=== PATIENT | male | born 1945 | race Caucasian/White ===

== ENCOUNTER 2018-03-18 01:37 | Outpatient (RCR) | payer MEDICARE, OTHER, SELFPAY ==
[2018-03-18] MEDS: Acetaminophen 325 MG TAB 650 MG PO (10:28)
[2018-03-18] MEDS: Normal Saline Flush 10 ML SYR IVP (12:21)
== END 2018-04-07 23:59 | disposition home or self-care (01) ==
LOC: INF 01:37
PROVIDERS: PCP Family Medicine; Visit Provider Internal Medicine
DX: M81.0 Age-related osteoporosis without current pathological fracture (principal)
CPT/HCPCS: 96365; J3489

== ENCOUNTER → 2018-05-19 11:22 | Outpatient (BNVA) | payer MEDICARE, OTHER, SELFPAY | PROVIDERS: PCP Family Medicine; Visit Provider Urology | DX: B36.9 Superficial mycosis, unspecified (principal) | CPT/HCPCS: 81003; 99203; 99213 ==

== ENCOUNTER → 2018-05-28 10:23 | Outpatient (BNVA) | payer MEDICARE, OTHER, SELFPAY | PROVIDERS: PCP Family Medicine; Visit Provider Nurse Practitioner Gerontology | DX: R61 Generalized hyperhidrosis (principal); R32 Unspecified urinary incontinence; R21 Rash and other nonspecific skin eruption | CPT/HCPCS: 99214 ==

== ENCOUNTER 2018-06-17 13:34 | Outpatient (REF) | payer MEDICARE, OTHER, SELFPAY ==
[2018-06-17 20:57] LABS: ALT 26 U/L (12-78); AST 20 U/L (15-37); Albumin 4.1 g/dL (3.4-5.0); Alkaline Phosphatase 112 U/L (46-116); Anion Gap 5.8 mmol/L (3-11); BUN 14 mg/dL (7-18); Bilirubin, Total 0.8 mg/dL (0.2-1.0); CO2 33.2 mmol/L (21.0-32.0); CREATININE 0.92 mg/dL (0.70-1.30); Calcium 8.8 mg/dL (8.5-10.1); Chloride 101 mmol/L (98-107); Glucose 89 mg/dL (70-100); Potassium 3.4 mmol/L (3.5-5.1); Sodium 140 mmol/L (136-145); Total Protein 6.5 g/dL (6.4-8.2)
== END 2018-06-17 13:54 ==
LOC: NCHCN 13:34
PROVIDERS: PCP Family Medicine; Visit Provider Family Medicine
DX: E78.5 Hyperlipidemia, unspecified (principal); N20.0 Calculus of kidney
CPT/HCPCS: 80053

== ENCOUNTER → 2018-07-07 13:02 | Outpatient (BNVA) | payer MEDICARE, OTHER, SELFPAY | PROVIDERS: PCP Family Medicine; Visit Provider Nurse Practitioner Gerontology | DX: N50.89 Other specified disorders of the male genital organs (principal); R32 Unspecified urinary incontinence | CPT/HCPCS: 99214 ==

== ENCOUNTER 2018-08-20 12:53 | Outpatient (REF) | payer MEDICARE, OTHER, SELFPAY ==
[2018-08-20 20:47] LABS: Anion Gap 11.1 mmol/L (3-11); BUN 10 mg/dL (7-18); CO2 29.9 mmol/L (21.0-32.0); CREATININE 1.04 mg/dL (0.70-1.30); Calcium 9.4 mg/dL (8.5-10.1); Chloride 102 mmol/L (98-107); Glucose 84 mg/dL (70-100); Potassium 4.2 mmol/L (3.5-5.1); Sodium 143 mmol/L (136-145)
== END 2018-08-20 13:13 ==
LOC: NCHCN 12:53
PROVIDERS: PCP Family Medicine; Visit Provider Family Medicine
DX: E87.6 Hypokalemia (principal)
CPT/HCPCS: 80048

== ENCOUNTER → 2018-09-11 12:25 | Outpatient (BNVA) | payer MEDICARE, OTHER, SELFPAY | PROVIDERS: PCP Family Medicine; Visit Provider Urology | DX: N39.41 Urge incontinence (principal) | CPT/HCPCS: 99213 ==

== ENCOUNTER → 2018-10-10 10:56 | Outpatient (BNVA) | payer MEDICARE, OTHER, SELFPAY | PROVIDERS: PCP Family Medicine; Visit Provider Urology | DX: R61 Generalized hyperhidrosis (principal) | CPT/HCPCS: 99213 ==

== ENCOUNTER → 2018-11-21 10:46 | Outpatient (BNVA) | payer MEDICARE, OTHER, SELFPAY | PROVIDERS: PCP Family Medicine; Visit Provider Urology | DX: R61 Generalized hyperhidrosis (principal); D47.09 Other mast cell neoplasms of uncertain behavior | CPT/HCPCS: 99212 ==

== ENCOUNTER 2019-03-24 02:54 | Outpatient (RCR) | payer MEDICARE, OTHER, SELFPAY ==
[2019-03-24] MEDS: Acetaminophen 325 MG TAB 650 MG PO (10:32)
[2019-03-24] MEDS: Normal Saline Flush 10 ML SYR IVP (10:32)
== END 2019-04-07 23:59 | disposition home or self-care (01) ==
LOC: INF 02:54
PROVIDERS: PCP Family Medicine; Visit Provider Internal Medicine
DX: M81.0 Age-related osteoporosis without current pathological fracture (principal)
CPT/HCPCS: 96365; J3489

== ENCOUNTER → 2019-04-14 13:35 | Outpatient (BNVA) | payer OTHER, SELFPAY | PROVIDERS: PCP Family Medicine; Referring Provider Family Medicine; Visit Provider Nurse Practitioner Gerontology | DX: B36.9 Superficial mycosis, unspecified (principal); R61 Generalized hyperhidrosis | CPT/HCPCS: 99213 ==

== ENCOUNTER → 2019-04-28 13:24 | Outpatient (BNVA) | payer OTHER, SELFPAY | PROVIDERS: PCP Family Medicine; Referring Provider Family Medicine; Visit Provider Nurse Practitioner Gerontology | DX: R61 Generalized hyperhidrosis (principal); N39.41 Urge incontinence | CPT/HCPCS: 99214 ==

== ENCOUNTER → 2019-05-14 11:03 | Outpatient (BNVA) | payer OTHER, SELFPAY | PROVIDERS: PCP Family Medicine; Referring Provider Family Medicine; Visit Provider Nurse Practitioner Gerontology | DX: R61 Generalized hyperhidrosis (principal); N39.41 Urge incontinence | CPT/HCPCS: 99213 ==

== ENCOUNTER 2019-05-24 10:52 | Emergency (ER) | payer OTHER, SELFPAY ==
[2019-05-24 10:59] VITALS: BP 132/84; PULSE 76; RESP 16; TEMP 36.6; O2SAT 94
--- NOTE | 2019-05-24 11:16 | ED.GENADUL_ITS ---
Discharge Plan Disposition Patient Disposition: HOME Condition: Good Discharge Details Chief Complaint: Nk/Back Pain Clinical Impression: Back contusion Primary Care Provider: Brianna Sibley V ED Provider: Jojo Velazquez Home Meds and New Rx's Prescriptions: Continued (DME) condom catheter/external drainage starter pack Qty: 1 RF: 0 Qbrexza 2.4 % towelette 1 applic TP DAILY Qty: 30 RF: 12 Myrbetriq 50 mg tablet extended release 24 hr 50 mg PO DAILY Qty: 90 RF: 1 phenazopyridine [Pyridium] 100 mg tablet 100 mg PO TID PRN (Reason: pain) Qty: 3 RF: 0 clotrimazole 10 ML solution 10 ml Topical PRN PRNRF: 0 epinephrine [EpiPen 2-Toño] 0.3 MG/0.3 ML auto-injector 0.3 mg IM PRN PRNRF: 0 ergocalciferol (vitamin D2) [Vitamin D2] 50,000 UNIT capsule 50,000 unit PO weekly RF: 0 zoledronic [id number]-[id number] [Reclast] 5 MG/100 ML piggyback 5 mg IV yearly RF: 0 chlorthalidone 25 MG tablet 25 mg PO DAILY Qty: 90 RF: 4 Discharge Instructions Instructions: How to Use an Incentive Spirometer (ED), Rib Fracture (ED), Contusion in Adults (ED) Additional Instructions: Encourage water intake. Encourage deep breathing. Please use the incentive spirometer as advised by nursing staff. Your x-ray does not show any evidence of fracture but you may have a small crack in 1 of your ribs that is not able to be seen on these images. Tylenol as needed for pain. You may use patches, available over the counter, such as Salonpas or Lidoderm patches. If you develop fevers/chills, difficulty breathing, shortness of breath or other new/worsening symptoms please seek care urgently once again. Please follow-up with primary care at the end of the week. Referrals: Brianna Sibley MD [Primary Care Provider] - Discharge Data Discharge Date/Time-TO BE ENTERED AT DEPARTURE: 05/24/19 13:24 Medical Decision Making Patient is a 73-year-old male presenting today with chief complaint of right- sided back pain after fall 3 days ago. He reports 3 days ago he slipped on the ice outside of his home and landed on the right side of his back. He has been using Tylenol without discomfort. Patient states that his pain is worse today with deep inspiration and coughing. Denies any fevers or chills. Does not feel short of breath. He denies any hematuria, urinary incontinence. No change in his bowel habits. Denies abdominal pain. No nausea or vomiting. Has not noted any pain rating into his legs. No weakness. No sensory changes. Denies other injury time of his fall. Did not strike his head, no loss of consciousness. On exam, patient is resting comfortably. He is area of maximal discomfort is more in the right lower side of his chest wall. He has no midline discomfort. Good range of motion. No CVA tenderness. Abdominal exam is benign. No ecc hymosis, rash or evidence of acute trauma. Normal neurologic exam. FINDINGS: Lungs: Emphysema Lungs are well aerated without a focal area of consolidation. Pleural space: Unremarkable. No pleural effusion. No pneumothorax. Heart/Mediastinum: Unremarkable. No cardiomegaly. Bones/joints: Compression fractures likely T. 12, L1 and L2. Previously noted. IMPRESSION: 1. Lungs are well aerated without a focal area of consolidation. 2. Compression fractures likely T. 12, L1 and L2. Previously noted. FINDINGS: Bones/joints: The submitted view of the chest is unremarkable. No acute cardiopulmonary process. The ribs are grossly normal. No acute or chronic fracture appreciated. No lytic process or expansile process. No rib notching. Soft tissues: Normal. IMPRESSION: Unremarkable ribs. I discussed these findings with the patient. Advised that while there is no evidence of acute fracture on the x-ray, this does not mean that there is not possibly a nondisplaced fracture that is not able to be visualized at this time. Encourage deep breathing. We will give him an incentive spirometer and treat as if he has a fracture. I encouraged use of Tylenol and ibuprofen as well as topical patches to help with discomfort. He was given strict return precautions. Advise close follow-up with primary care. All of his questions and concerns were addressed and he is in agreement with this plan. HPI General Mode of arrival: ambulatory . Date/Time Provider Initiated Documentation: 05/24/19 11:16 . Limitations to Documentation: no limitations . Information obtained by: patient and RN notes reviewed . History of Present Illness 73 year old M presents to the emergency department with the chief complaint of Right sided back pain, described as moderate, with intensity rated at 8. Quality is described as sharp, and is localized to the back. Patient reports no radiation. Patient started experiencing this day(s) (3) and it has been constant. Immobilization improves symptom(s), Movement worsens symptoms . Patient notes no other symptoms.. Patient did receive the following treatments prior to arrival, none Related Data Home Medications Medication Instructions Recorded Confirmed clotrimazole 10 ml TOPICAL PRN PRN script 07/20/15 04/28/19 epinephrine [EpiPen 2-Toño] 0.3 mg IM PRN PRN 07/20/15 04/28/19 chlorthalidone 25 mg PO DAILY #90 tab-cap 12/11/16 04/28/19 ergocalciferol (vitamin D2) 50,000 unit PO weekly 12/11/16 04/28/19 [Vitamin D2] zoledronic rslf-erkzauvx-cebuw 5 mg IV yearly 12/11/16 04/28/19 [Reclast] condom catheter/external drainage #1 ea 09/11/18 04/28/19 starter pack glycopyrronium tosylate 2.4 % 1 applic TP DAILY #30 each 10/10/18 04/28/19 towelette mirabegron 50 mg tablet,extended 50 mg PO DAILY #90 tab 04/28/19 04/28/19 release 24 hr phenazopyridine 100 mg tablet 100 mg PO TID PRN #3 tab 05/14/19 05/14/19 Previous Rx's Medication Instructions Recorded condom catheter/external drainage #1 ea 09/11/18 starter pack glycopyrronium tosylate 2.4 % 1 applic TP DAILY #30 each 10/10/18 towelette mirabegron 50 mg tablet,extended 50 mg PO DAILY #90 tab 04/28/19 release 24 hr phenazopyridine 100 mg tablet 100 mg PO TID PRN #3 tab 05/14/19 Allergies Allergy/AdvReac Type Severity Reaction Status Date / Time venom-honey bee Allergy Severe Anaphylaxsi Unverified 05/24/19 11:03 s solifenacin succinate AdvReac Intermediate Dizziness/L Unverified 05/24/19 11:03 [From Vesicare] ightheade tolterodine tartrate AdvReac Intermediate Dizziness/L Unverified 05/24/19 11:03 [From Detrol] ightheade General Stated Complaint: Nk/Back Pain MARCELLA: 4 Review of Systems Constitutional Constitutional: Reports as per HPI, Denies chills, Denies fatigue, Denies fever(s), Denies frequent falls and Denies headache(s) Eyes Eyes: Denies change in vision ENT Ears, Nose, Mouth, and Throat: Denies headache(s) Cardiovascular Cardiovascular: Denies chest pain, Denies dyspnea and Denies dyspnea on exertion Respiratory Respiratory: Denies cough, Reports pain on inspiration, Reports pain with cough, Denies dyspnea and Denies dyspnea on exertion Gastrointestinal Gastrointestinal: Denies abdominal pain, Denies change in bowel habits and Denies fecal incontinence Genitourinary Genitourinary: Reports as per HPI, Denies urinary hesitancy and Denies urinary incontinence Musculoskeletal Musculoskeletal: Reports as per HPI, Reports back pain, Denies muscle weakness, Denies numbness, Denies radiating pain into limb, Reports stiffness and Denies tingling Integumentary/Breasts Skin/Breast: Reports as per HPI and Denies rash Neurologic Neurologic: Reports as per HPI, Denies frequent falls, Denies headache(s), Denies focal weakness, Denies numbness, Denies radicular pain, Denies sensory deficit, Denies tingling and Denies paresthesias Endocrine Endocrine: Denies fatigue [facility] Medical History (Updated 05/24/19 @ 13:14 by JUAN Montgomery) Barretts esophagus Bee sting allergy Black stools Bladder atony BPH (benign prostatic hyperplasia) Chronic low back pain Compression fracture of thoracolumbar vertebra Cough GERD (gastroesophageal reflux disease) History of agent [place] exposure Hyperlipidemia Ingrown toenail Kidney stones Occult blood positive stool Onychomycosis Osteoporosis Pipe smoker Recent weight loss Skin rash Spigelian hernia Trigger finger Tubular adenoma of colon Urine incontinence Urticaria pigmentosa Surgical History (Updated 09/12/17 @ 16:07 by Misti Kaplan RN) Appendectomy Colonoscopy - MAC (08/30/17) EGD - MAC (08/30/17) Social History Smoking/Tobacco Use Status: Current every day Alcohol Intake: never Drug use: Never Substance use type: does not use Do you feel safe in your relationship?: Yes Exam Const General: cooperative, healthy appearing, comfortable, no acute distress, well developed and well groomed Nutritional Appearance: average body habitus and well nourished Orientation: alert and awake Eyes General: appearance normal, both eyes and all related structures Neck Neck: normal visual inspection, full ROM, no lymphadenopathy and no meningeal signs Chest Chest: normal inspection of the chest, no crepitus and localized rib tenderness with anteroposterior compression (Right posterior inferior rib discomfort) Resp Effort & Inspection: normal respiratory effort and able to speak in complete sentences Auscultation: clear to auscultation bilaterally, no rales, no rhonchi and no wheezes Cardio Rate: regular rate Rhythm: regular rhythm Heart Sounds: S1 normal and S2 normal Back/Spine/Pelvis Back: no CVA tenderness Cervical Spine: normal cervical lordosis, cervical ROM normal, No cervical spinal tenderness, No step off deformity and No cervical ROM abnormal Thoracic/Lumbar Spine: thoracic and lumbar spine normal to inspection, thoraco- lumbar ROM normal, No pain with thoraco-lumbar ROM, No paraspinal tenderness, No thoraco-lumbar ROM limited, No thoracic spinal tenderness and No lumbar spinal tenderness Pelvis: no pain with anterior-posterior compression and no pain with lateral compression Skin General skin exam: no rashes or lesions noted Neuro General: alert and awake Cognition: normal cognition Speech: speech normal Gait: normal gait Motor: muscle tone normal throughout, strength 5/5 throughout, no movement abnormalities noted and no fasciculations Sensory Exam: no sensory deficits noted (no saddle paresthesias) DTR's: Rt Patellar: 2+, Lt Patellar: 2+, Rt Ankle: 2+ and Lt Ankle: 2+ Extrem General: normal to inspection, full ROM, normal capillary refill, no joint enlargement, no pedal edema, no calf tenderness and normal gait Psych Appearance: grossly normal and well kempt Mental Status: mental status grossly normal Speech and Movement: speech and movement normal Course Vital Signs Vital signs: Vital Signs Temperature 36.6 C 05/24/19 10:59 Pulse 76 05/24/19 10:59 Respiratory Rate 16 05/24/19 10:59 Blood Pressure 132/84 05/24/19 10:59 Pulse Oximetry 94 L 05/24/19 10:59 Temperature 36.6 C 05/24/19 10:59 Temperature Source Skin 05/24/19 10:59 Pulse 76 05/24/19 10:59 Respiratory Rate 16 05/24/19 10:59 Respiratory Effort Non-Labored 05/24/19 11:03 Blood Pressure 132/84 05/24/19 10:59 Blood Pressure Position Sitting 05/24/19 10:59 Pulse Oximetry 94 L 05/24/19 10:59 Oxygen Delivery Method Room Air 05/24/19 10:59 Oxygen Flow Rate 0 05/24/19 10:59 Pain Level 8 05/24/19 10:59
[2019-05-24] MEDS: Lidocaine 5% Patch 1 PATCH TP (11:42)
--- NOTE | 2019-05-24 12:00 | DI.RAD_ITS ---
EXAM: XR RIBS RT W PA LAT CHEST INDICATION: fall 4 days ago, RT POSTERIOR PAIN COMPARISON: CHEST 2 VIEWS PA,LAT from 12/27/2015 TECHNIQUE: 2D digital imaging was performed. FINDINGS: The heart size and pulmonary vasculature are within normal limits. The lungs are clear. No pleural effusion or pneumothorax. No rib fracture. Old thoracic and lumbar compression fractures. Underlyi ng COPD. IMPRESSION: No acute pulmonary process.
--- NOTE | 2019-05-24 12:42 | DI.VRAD_ITS ---
PROCEDURE INFORMATION: Exam: XR Right Chest, 2 Views Exam date and time: 05/24/2019 11:52 AM Age: 73 years old Clinical indication: Other: Fall 4 days ago; Other: Fall onto back off stairs 4 days ago; Additional info: Posterior pain lower right, marked with a bb TECHNIQUE: Imaging protocol: Right XR of the chest Views: 2 views. COMPARISON: CR CHEST 2 VIEWS PA,LAT 12/27/2015 9:33 AM FINDINGS: Lungs: Emphysema Lungs are well aerated without a focal area of consolidation. Pleural space: Unremarkable. No pleural effusion. No pneumothorax. Heart/Mediastinum: Unremarkable. No cardiomegaly. Bones/joints: Compression fractures likely T. 12, L1 and L2. Previously noted. IMPRESSION: 1. Lungs are well aerated without a focal area of consolidation. 2. Compression fractures likely T. 12, L1 and L2. Previously noted. PROCEDURE INFORMATION: Exam: XR Right Ribs Exam date and time: 05/24/2019 11:52 AM Age: 73 years old Clinical indication: Other: Fall 4 days ago; Other: Fall onto back off stairs 4 days ago; Additional info: Posterior pain lower right, marked with a bb TECHNIQUE: Imaging protocol: XR Right ribs. Views: 2 views. COMPARISON: CR CHEST 2 VIEWS PA,LAT 12/27/2015 9:33 AM FINDINGS: Bones/joints: The submitted view of the chest is unremarkable. No acute cardiopulmonary process. The ribs are grossly normal. No acute or chronic fracture appreciated. No lytic process or expansile process. No rib notching. Soft tissues: Normal. IMPRESSION: Unremarkable ribs. Dictated and Authenticated by: Dash Schaefer MD. Ordering:ANGELI Uribe MD
[2019-05-24 13:20] VITALS: BP 132/84; PULSE 76; RESP 16; TEMP 36.6; O2SAT 94
== END 2019-05-24 13:24 | disposition home or self-care (01) ==
PROVIDERS: Emergency Provider Physician Assistant; PCP Family Medicine
DX: S20.221A Contusion of right back wall of thorax, initial encounter (principal); W00.0XXA Fall on same level due to ice and snow, initial encounter
CPT/HCPCS: 99283; 71046; 71100

== ENCOUNTER → 2019-06-16 11:29 | Outpatient (BNVA) | payer OTHER, SELFPAY | PROVIDERS: PCP Family Medicine; Referring Provider Family Medicine; Visit Provider Nurse Practitioner Gerontology | DX: N39.41 Urge incontinence (principal); R61 Generalized hyperhidrosis | CPT/HCPCS: 99214 ==

== ENCOUNTER 2019-10-13 15:14 | Outpatient (REF) | payer OTHER, SELFPAY ==
[2019-10-19 09:11] LABS: SARS-CoV-2 RNA Undetected (Undetected); SARS-CoV-2 Specimen Source Nasopharynx
== END 2019-10-13 15:34 ==
LOC: NCHCN 15:14
PROVIDERS: PCP Family Medicine; Visit Provider Nurse Practitioner Family
DX: Z03.818 Encounter for observation for suspected exposure to other biological agents ruled out (principal)
CPT/HCPCS: U0003

== ENCOUNTER → 2019-10-26 11:15 | Outpatient (BNVA) | payer OTHER, SELFPAY | PROVIDERS: PCP Family Medicine; Referring Provider Family Medicine; Visit Provider Nurse Practitioner Gerontology | DX: R61 Generalized hyperhidrosis (principal); N39.41 Urge incontinence | CPT/HCPCS: 99213 ==

== ENCOUNTER → 2019-12-31 11:00 | Outpatient (BNVA) | payer OTHER, SELFPAY | PROVIDERS: PCP Family Medicine; Referring Provider Family Medicine; Visit Provider Nurse Practitioner Gerontology | DX: R61 Generalized hyperhidrosis (principal) | CPT/HCPCS: 99213 ==

== ENCOUNTER → 2020-03-01 13:56 | Outpatient (BNVA) | payer OTHER, SELFPAY | PROVIDERS: PCP Family Medicine; Referring Provider Family Medicine; Visit Provider Nurse Practitioner Gerontology | DX: R61 Generalized hyperhidrosis (principal); L89.319 Pressure ulcer of right buttock, unspecified stage | CPT/HCPCS: 99213 ==

== ENCOUNTER → 2020-03-16 14:30 | Outpatient (BNVA) | payer OTHER, SELFPAY | PROVIDERS: PCP Family Medicine; Referring Provider Family Medicine; Visit Provider Nurse Practitioner Gerontology | DX: R61 Generalized hyperhidrosis (principal); L89.319 Pressure ulcer of right buttock, unspecified stage | CPT/HCPCS: 99213 ==

== ENCOUNTER 2020-03-30 01:34 | Outpatient (RCR) | payer OTHER, SELFPAY ==
[2020-03-30] MEDS: Normal Saline Flush 10 ML SYR IVP (14:08)
== END 2020-04-07 23:59 | disposition home or self-care (01) ==
LOC: INF 01:34
PROVIDERS: PCP Family Medicine; Visit Provider Nurse Practitioner Acute Care
DX: M81.0 Age-related osteoporosis without current pathological fracture (principal)
CPT/HCPCS: 96365; J3489

== ENCOUNTER 2020-04-22 21:08 | Outpatient (REF) | payer OTHER, SELFPAY ==
[2020-04-22 19:40] LABS: Abs Immature Grans 0.02 10^3/uL (0.0-0.06); Absolute Basophil Count 0.04 10^3/uL (0.0-0.2); Absolute Eosinophil Count 0.14 10^3/uL (0.0-0.7); Absolute Lymphocyte Count 2.11 10^3/uL (1.2-3.4); Absolute Monocyte Count 0.59 10^3/uL (0.1-0.8); Absolute Neutrophil Count 4.16 10^3/uL (1.2-6.7); Basophils % 0.6; HGB 16.1 g/dL (13.5-17.5); Immature Grans % 0.3; Lymphocytes % 29.9; MCH 31.4 pg (27.0-33.0); MCHC 33.5 % (32.0-36.0); MCV 93.8 fL (80-95); MPV 9.2 fL (8.0-11.0); Monocytes % 8.4; Neutrophils % 58.8; Nucleated RBC 0 %; Platelet Count 247 10^3/uL (130-400); RBC 5.12 10^6/uL (4.36-5.78); RDW 12.9 % (11.8-14.1); RDW-SD 44.5 fL; WBC 7.06 10^3/uL (4.4-10.8)
[2020-04-22 20:03] LABS: Anion Gap 5.6 mmol/L (3-11); BUN 13 mg/dL (7-18); CO2 29.4 mmol/L (21.0-32.0); Calcium 8.7 mg/dL (8.5-10.1); Chloride 105 mmol/L (98-107); Glucose 90 mg/dL (74-106); NT-proBNP 152 pg/mL (<300); Potassium 3.6 mmol/L (3.5-5.1); Sodium 140 mmol/L (136-145)
[2020-04-25 12:49] LABS: COVID-19 RT-PCR UVMMC Result Negative (Negative)
== END 2020-04-22 21:28 ==
LOC: NCHCN 21:08
PROVIDERS: PCP Family Medicine; Visit Provider Family Medicine
DX: R06.09 Other forms of dyspnea (principal); R05 Cough; J06.9 Acute upper respiratory infection, unspecified
CPT/HCPCS: 80048; U0003; 83880; 85025

== ENCOUNTER → 2020-08-04 09:04 | Outpatient (BNVA) | payer OTHER, SELFPAY | PROVIDERS: PCP Family Medicine; Referring Provider Family Medicine; Visit Provider Nurse Practitioner Adult Health | DX: R41.3 Other amnesia (principal); Z87.820 Personal history of traumatic brain injury; F17.210 Nicotine dependence, cigarettes, uncomplicated; R01.1 Cardiac murmur, unspecified; Z91.14 Patient's other noncompliance with medication regimen | CPT/HCPCS: 99204; 99215; G2212 ==

== ENCOUNTER 2020-08-05 07:39 | Outpatient (CLI) | payer OTHER, SELFPAY ==
[2020-08-05 14:46] LABS: Vitamin B12 251 pg/mL (193-986)
== END 2020-08-05 07:40 | disposition home or self-care (01) ==
LOC: LBO 07:45
PROVIDERS: PCP Family Medicine; Visit Provider Nurse Practitioner Adult Health
DX: R41.3 Other amnesia (principal)
CPT/HCPCS: 36415; 82607; 84443

== ENCOUNTER 2020-09-02 03:08 | Outpatient (CLI) | payer OTHER, SELFPAY ==
--- NOTE | 2020-09-02 10:50 | DI.MRI_ITS ---
Exam(s) MR BRAIN WO EXAM: MR BRAIN WO CLINICAL HISTORY: memory deficit,r41.3 TECHNIQUE: Multiplanar multisequence MRI of the brain was performed. COMPARISON: No exams were available for comparison FINDINGS: There is mild generalized cerebral atrophy. No signal abnormality identified in the brain. The orbital and temporal bone structures appear intact as does the pituitary. Diffusion weighted imaging shows no evidence of infarction. Susceptibility weighted imaging shows no evidence of intracranial hemorrhage. There is normal flow void in the skull [place] vasculature. IMPRESSION: Mild cerebral atrophy, otherwise normal brain MRI. DATA REPOSITORY:
== END 2020-09-02 03:28 ==
PROVIDERS: PCP Family Medicine; Visit Provider Nurse Practitioner Adult Health
DX: R41.3 Other amnesia (principal); G31.89 Other specified degenerative diseases of nervous system
CPT/HCPCS: 70551

== ENCOUNTER → 2020-10-11 10:27 | Outpatient (BNVA) | payer OTHER, SELFPAY | PROVIDERS: PCP Family Medicine; Referring Provider Family Medicine; Visit Provider Nurse Practitioner Adult Health | DX: G30.1 Alzheimer's disease with late onset (principal); F02.80 Dementia in other diseases classified elsewhere, unspecified severity, without behavioral disturbance, psychotic disturbance, mood disturbance, and anxiety; Z79.899 Other long term (current) drug therapy | CPT/HCPCS: 99214; 99215; G2212 ==

== ENCOUNTER → 2020-11-28 10:51 | Outpatient (BNVA) | payer OTHER, SELFPAY | PROVIDERS: PCP Family Medicine; Referring Provider Family Medicine; Visit Provider Nurse Practitioner Adult Health | DX: G30.1 Alzheimer's disease with late onset (principal); F02.80 Dementia in other diseases classified elsewhere, unspecified severity, without behavioral disturbance, psychotic disturbance, mood disturbance, and anxiety; F17.290 Nicotine dependence, other tobacco product, uncomplicated | CPT/HCPCS: 99213; 99215 ==

== ENCOUNTER → 2021-03-06 12:52 | Outpatient (BNVA) | payer OTHER, SELFPAY | PROVIDERS: PCP Family Medicine; Referring Provider Family Medicine; Visit Provider Psychiatry & Neurology Neurology | DX: G30.1 Alzheimer's disease with late onset (principal); F02.80 Dementia in other diseases classified elsewhere, unspecified severity, without behavioral disturbance, psychotic disturbance, mood disturbance, and anxiety | CPT/HCPCS: 99214 ==

== ENCOUNTER → 2021-04-25 10:30 | Outpatient (BNVA) | payer MEDICARE, OTHER, SELFPAY | PROVIDERS: PCP Family Medicine; Referring Provider Family Medicine; Visit Provider Nurse Practitioner Adult Health | DX: G30.1 Alzheimer's disease with late onset (principal); F02.80 Dementia in other diseases classified elsewhere, unspecified severity, without behavioral disturbance, psychotic disturbance, mood disturbance, and anxiety; R20.9 Unspecified disturbances of skin sensation; R50.9 Fever, unspecified | CPT/HCPCS: 99213; 99214 ==

== ENCOUNTER 2021-04-25 20:16 | Outpatient (REF) | payer MEDICARE, OTHER, SELFPAY ==
[2021-04-27 11:06] LABS: COVID-19 RT-PCR UVMMC Result Negative (Negative)
== END 2021-04-25 20:17 | disposition home or self-care (01) ==
LOC: NCHCN 20:16
PROVIDERS: PCP Family Medicine; Visit Provider Family Medicine
DX: Z20.822 Contact with and (suspected) exposure to COVID-19 (principal); R50.9 Fever, unspecified
CPT/HCPCS: U0003; U0005

== ENCOUNTER → 2021-10-24 09:33 | Outpatient (BNVA) | payer MEDICARE, OTHER, SELFPAY | PROVIDERS: PCP Family Medicine; Referring Provider Family Medicine; Visit Provider Nurse Practitioner Adult Health | DX: G30.1 Alzheimer's disease with late onset (principal); F02.80 Dementia in other diseases classified elsewhere, unspecified severity, without behavioral disturbance, psychotic disturbance, mood disturbance, and anxiety; Z60.2 Problems related to living alone | CPT/HCPCS: 99213; 99214 ==

== ENCOUNTER → 2021-11-30 00:56 | Outpatient (CLI) | payer MEDICARE, OTHER, SELFPAY ==
--- NOTE | 2021-11-30 13:58 | DI.DEXA_ITS ---
Exam(s) XR DEXA BONE DENSITY W/WO RUTH ANN EXAM: XR DEXA BONE DENSITY W/WO RUTH ANN CLINICAL HISTORY: OSTEOPOROSIS, M81.0,VERTBRAL COMP FX, T14.8 TECHNIQUE: COMPARISON: No exams were available for comparison FINDINGS: DEXA scan was performed according to the usual protocol. Please see the accompanying data sheets. T here appear to be compression fractures of T11-T12 L1 and L4 on the lateral vertebral scanogram. Left hip scanning shows T-score -1.5 with left femoral neck T-score -2.7. Prior examination of October 2015 showed left hip T-score -1.1. Lumbar spine scanning shows T-score 2.2. Prior examination of 2015 showed lumbar T-score -1.2. Left forearm scanning shows T-score -0.5, prior examination showed T-score -0.4. IMPRESSION: Measurements are consistent with osteoporosis according to the WHO criteria. Note is made of multipl e vertebral compression fractures as described above seen on the lateral vertebral scanogram. RADIATION DOSE DELIVERED: Total DLP
== END ==
PROVIDERS: PCP Family Medicine; Visit Provider Family Medicine
DX: M81.0 Age-related osteoporosis without current pathological fracture (principal); Z13.820 Encounter for screening for osteoporosis
CPT/HCPCS: 77080

== ENCOUNTER 2022-01-18 02:25 | Outpatient (RCR) | payer MEDICARE, OTHER, SELFPAY ==
[2022-01-18] MEDS: ZOLEDRONIC ACID/MANNITOL/WATER 5 MG/100 ML BTL 300 MG IVPB (10:12)
[2022-01-18] MEDS: Normal Saline Flush 10 ML SYR IVP (10:13)
== END 2022-02-05 23:59 | disposition home or self-care (01) ==
LOC: INF 02:25
PROVIDERS: PCP Family Medicine; Visit Provider Nurse Practitioner Acute Care
DX: M81.0 Age-related osteoporosis without current pathological fracture (principal)
CPT/HCPCS: 96365; J3489

== ENCOUNTER → 2022-04-24 09:50 | Outpatient (BNVA) | payer MEDICARE, OTHER, SELFPAY | PROVIDERS: PCP Family Medicine; Referring Provider Family Medicine; Visit Provider Nurse Practitioner Adult Health | DX: S50.11XD Contusion of right forearm, subsequent encounter (principal); X58.XXXD Exposure to other specified factors, subsequent encounter; G30.1 Alzheimer's disease with late onset; F02.80 Dementia in other diseases classified elsewhere, unspecified severity, without behavioral disturbance, psychotic disturbance, mood disturbance, and anxiety | CPT/HCPCS: 99213; 99214 ==

== ENCOUNTER 2023-02-12 18:14 | Outpatient (REF) | payer MEDICARE, OTHER, SELFPAY ==
[2023-02-12 15:43] LABS: HCT 43.8 % (40.0-50.0); MCH 32.4 pg (27.0-33.0); MCHC 34.2 % (32.0-36.0); MCV 95 fL (80-95); MPV 9.2 fL (8.0-11.0); Platelet Count 232 10^3/uL (130-400); RBC 4.63 10^6/uL (4.36-5.78); RDW 12.4 % (11.8-14.1); RDW-SD 43.1 fL; WBC 7.15 10^3/uL (4.4-10.8)
[2023-02-12 16:13] LABS: Anion Gap 7.2 mmol/L (3-11); BUN 12 mg/dL (7-18); CO2 28.8 mmol/L (21.0-32.0); Calcium 9.2 mg/dL (8.5-10.1); Chloride 104 mmol/L (98-107); Estimated GFR 76.56 (mL/min/1.73m2); Glucose 111 mg/dL (74-106); Potassium 3.9 mmol/L (3.5-5.1); Sodium 140 mmol/L (136-145); Vitamin B12 944 pg/mL (193-986)
== END 2023-02-12 18:15 | disposition home or self-care (01) ==
LOC: NCHCN 18:14
PROVIDERS: PCP Family Medicine; Visit Provider Family Medicine
DX: E53.8 Deficiency of other specified B group vitamins (principal); Z00.00 Encounter for general adult medical examination without abnormal findings
CPT/HCPCS: 80048; 85027; 82607

== ENCOUNTER 2023-02-13 01:12 | Outpatient (RCR) | payer MEDICARE, OTHER, SELFPAY ==
[2023-02-13] MEDS: ZOLEDRONIC ACID/MANNITOL/WATER 5 MG/100 ML BTL 300 MG IVPB (10:49)
[2023-02-13] MEDS: Normal Saline Flush 10 ML SYR IVP (10:50)
== END 2023-03-07 23:59 | disposition home or self-care (01) ==
LOC: INF 01:12
PROVIDERS: PCP Family Medicine; Visit Provider Family Medicine
DX: M81.0 Age-related osteoporosis without current pathological fracture (principal)
CPT/HCPCS: 96365; J3489

== ENCOUNTER → 2023-09-25 14:57 | Outpatient (BNVA) | payer MEDICARE, OTHER, SELFPAY | PROVIDERS: PCP Family Medicine; Referring Provider Family Medicine; Visit Provider Nurse Practitioner Adult Health | DX: G30.1 Alzheimer's disease with late onset (principal); F02.80 Dementia in other diseases classified elsewhere, unspecified severity, without behavioral disturbance, psychotic disturbance, mood disturbance, and anxiety | CPT/HCPCS: 99214 ==

== ENCOUNTER 2024-01-28 19:43 | Outpatient (REF) | payer MEDICARE, OTHER, SELFPAY ==
[2024-01-28 19:25] LABS: Abs Immature Grans 0.06 10^3/uL (0.0-0.06); Absolute Basophil Count 0.04 10^3/uL (0.0-0.2); Absolute Eosinophil Count 0.33 10^3/uL (0.0-0.7); Absolute Lymphocyte Count 1.87 10^3/uL (1.2-3.4); Absolute Monocyte Count 1.05 10^3/uL (0.1-0.8); Basophils % 0.4 %; Eosinophils % 3.2 %; HCT 44.3 % (40.0-50.0); HGB 15.1 g/dL (13.5-17.5); Immature Grans % 0.6 %; Lymphocytes % 17.9 %; MCH 33.7 pg (27.0-33.0); MCHC 34.1 % (32.0-36.0); MCV 99 fL (80-95); MPV 9.4 fL (8.0-11.0); Neutrophils % 67.9 %; Platelet Count 214 10^3/uL (130-400); RBC 4.48 10^6/uL (4.36-5.78); RDW 13.4 % (11.8-14.1); RDW-SD 49.1 fL; WBC 10.45 10^3/uL (4.4-10.8)
[2024-01-28 19:46] LABS: ALT 24 U/L (16-63); AST 23 U/L (15-37); Albumin 3.9 g/dL (3.4-5.0); Alkaline Phosphatase 100 U/L (46-116); Anion Gap 9.7 mmol/L (3-11); BUN 15 mg/dL (7-18); CO2 27.3 mmol/L (21.0-32.0); CREATININE 1.1 mg/dL (0.70-1.30); Calcium 8.8 mg/dL (8.5-10.1); Chloride 106 mmol/L (98-107); Estimated GFR 67.86 (mL/min/1.73m2); Glucose 94 mg/dL (74-106); NT-proBNP 269 pg/mL (<300); Potassium 4.1 mmol/L (3.5-5.1); Sodium 143 mmol/L (136-145); Total Protein 7.2 g/dL (6.4-8.2)
[2024-01-31 08:43] LABS: FREE T4 0.95 ng/dL (0.76-1.46)
== END 2024-01-28 19:44 | disposition home or self-care (01) ==
LOC: NCHCN 19:43
PROVIDERS: PCP Family Medicine; Visit Provider Family Medicine
DX: R60.0 Localized edema (principal)
CPT/HCPCS: 80053; 83880; 84439; 84443; 85025